=== PATIENT | male | born 1950 | race Caucasian/White ===

== ENCOUNTER 2018-05-20 05:55 | Observation (INO) | payer MEDICARE, OTHER ==
[2018-04-18 18:33] LABS: ADD MAN DIFF? NO
[2018-04-18 18:40] LABS: BASOPHILS % 0.2 % (0.0-2.0); EOSINOPHILS # 0.1 10^3/ul (0.0-0.5); EOSINOPHILS % 1.4 % (0.0-7.0); HEMATOCRIT 43.8 % (42.0-52.0); HEMOGLOBIN 14.9 g/dl (14.0-18.0); LYMPHOCYTES # 1.6 10^3/ul (0.8-2.9); MEAN CORPUSCULAR HEMOGLOBIN 30.3 pg (29.0-33.0); MEAN PLATELET VOLUME 9.6 fl (7.4-10.4); MONOCYTE # 0.4 10^3/ul (0.3-0.9); MONOCYTES % 7.5 % (0.0-11.0); NEUTROPHIL # 3.1 10^3/ul (1.6-7.5); NEUTROPHILS % 59.7 % (39.0-77.0); PLATELET COUNT 195 10^3/UL (140-415); RED BLOOD COUNT 4.92 10^6/ul (4.70-6.10); RED CELL DISTRIBUTION WIDTH 13.2 % (11.5-14.5)
[2018-04-18 18:40] LABS: WHITE BLOOD COUNT 5.1 10^3/ul (4.8-10.8)
[2018-04-18 18:44] LABS: ADD UMIC NO; UR ASCORBIC ACID NEGATIVE (NEGATIVE); UR BILIRUBIN (Dip) NEGATIVE (NEGATIVE); UR BLOOD (Dip) NEGATIVE (NEGATIVE); UR CLARITY CLEAR (CLEAR); UR COLOR YELLOW (YELLOW); UR GLUCOSE (Dip) NEGATIVE (NEGATIVE); UR KETONES (Dip) NEGATIVE (NEGATIVE); UR LEUKOCYTE ESTERASE (Dip) NEGATIVE Leu/ul (NEGATIVE); UR NITRITE (Dip) NEGATIVE (NEGATIVE); UR SPECIFIC GRAVITY (Dip) 1.018 (1.003-1.030); UR TOTAL PROTEIN (Dip) NEGATIVE (NEGATIVE); UR UROBILINOGEN (Dip) NEGATIVE (NEGATIVE)
[2018-04-18 18:57] LABS: ALANINE AMINOTRANSFERASE 25 IU/L (13-69); ALBUMIN 4.2 g/dl (3.3-4.9); ALBUMIN/GLOBULIN RATIO 1.44; ALKALINE PHOSPHATASE 75 IU/L (42-121); ANION GAP 6 (5-13); ASPARTATE AMINO TRANSFERASE 29 IU/L (15-46); BILIRUBIN,INDIRECT 0.1 mg/dl (0-1.1); BILIRUBIN,TOTAL 0.1 mg/dl (0.2-1.3); BLOOD UREA NITROGEN 16 mg/dl (7-20); CALCIUM 9.8 mg/dl (8.4-10.2); CARBON DIOXIDE 26 mmol/L (21-31); CHLORIDE 110 mmol/L (97-110); CREATININE 0.92 mg/dl (0.61-1.24); Estimated GFR > 60 mL/min (>60); GLUCOSE 127 mg/dl (70-220); POTASSIUM 4.1 mmol/L (3.5-5.1); SODIUM 142 mmol/L (135-144); TOTAL PROTEIN 7.1 g/dl (6.1-8.1)
[2018-05-20 06:48] LABS: ADD MAN DIFF? NO
[2018-05-20 06:58] LABS: BASOPHILS % 0.4 % (0.0-2.0); EOSINOPHILS # 0.1 10^3/ul (0.0-0.5); EOSINOPHILS % 2.5 % (0.0-7.0); HEMATOCRIT 43.9 % (42.0-52.0); LYMPHOCYTES # 1.7 10^3/ul (0.8-2.9); LYMPHOCYTES % 30.2 % (15.0-51.0); MEAN CORPUSCULAR HEMOGLOBIN 30.1 pg (29.0-33.0); MEAN CORPUSCULAR HGB CONC 34.2 g/dl (32.0-37.0); MEAN CORPUSCULAR VOLUME 88.2 fl (82.0-101.0); MEAN PLATELET VOLUME 9.8 fl (7.4-10.4); MONOCYTE # 0.5 10^3/ul (0.3-0.9); MONOCYTES % 8.6 % (0.0-11.0); NEUTROPHIL # 3.2 10^3/ul (1.6-7.5); NEUTROPHILS % 57.9 % (39.0-77.0); PLATELET COUNT 192 10^3/UL (140-415); RED BLOOD COUNT 4.98 10^6/ul (4.70-6.10); RED CELL DISTRIBUTION WIDTH 12.9 % (11.5-14.5)
[2018-05-20 06:58] LABS: WHITE BLOOD COUNT 5.6 10^3/ul (4.8-10.8)
[2018-05-20] MEDS ORDERED: EPHEDrine SULFATE 50 MG/5 ML SYG IV (07:00)
[2018-05-20] MEDS ORDERED: DIPHENHYDRAMINE 50 MG INJ IV (07:00)
[2018-05-20] MEDS ORDERED: TRIMETHOBENZAMIDE 100 MG/ML VIAL IM (07:00)
[2018-05-20] MEDS ORDERED: OXYCODONE/ACETAMINOPHEN (5/325) TAB PO ×2 (07:00)
[2018-05-20] MEDS ORDERED: IPRATROPIUM (NEB) 0.5 MG/2.5 ML AMP HHN (07:00)
[2018-05-20] MEDS ORDERED: HYDROmorphONE 1 MG/5 ML IV SYRINGE IV ×3 (07:00)
[2018-05-20] MEDS ORDERED: MIDAZOLAM 1 MG/ML 2 ML INJ IV (07:00)
[2018-05-20] MEDS ORDERED: LABETALOL HCL 20MG INJ IV (07:00)
[2018-05-20] MEDS ORDERED: ALBUTEROL 0.083% (NEB) 2.5 MG/3 ML AMP HHN (07:00)
[2018-05-20] MEDS ORDERED: MEPERIDINE 25 MG INJ IV (07:00)
[2018-05-20] MEDS ORDERED: hydrALAzine 20 MG INJ IV (07:00)
[2018-05-20] MEDS ORDERED: FENTAnyl 50 MCG/ML VIAL IV ×3 (07:00)
[2018-05-20 07:08] LABS: ADD UMIC NO; UR ASCORBIC ACID NEGATIVE (NEGATIVE); UR BILIRUBIN (Dip) NEGATIVE (NEGATIVE); UR BLOOD (Dip) NEGATIVE (NEGATIVE); UR CLARITY CLEAR (CLEAR); UR COLOR STRAW (YELLOW); UR GLUCOSE (Dip) NEGATIVE (NEGATIVE); UR KETONES (Dip) NEGATIVE (NEGATIVE); UR LEUKOCYTE ESTERASE (Dip) NEGATIVE Leu/ul (NEGATIVE); UR NITRITE (Dip) NEGATIVE (NEGATIVE); UR TOTAL PROTEIN (Dip) NEGATIVE (NEGATIVE); UR UROBILINOGEN (Dip) NEGATIVE (NEGATIVE)
[2018-05-20] MEDS ORDERED: CEFAZOLIN 1 GM INJ (07:09)
[2018-05-20] MEDS ORDERED: ROCURONIUM 50 MG INJ (07:09)
[2018-05-20] MEDS ORDERED: MIDAZOLAM 1 MG/ML 2 ML INJ (07:09)
[2018-05-20] MEDS ORDERED: NEOSTIGMINE 3 MG/3 ML SYRINGE (07:09)
[2018-05-20] MEDS ORDERED: PROPOFOL 20 ML (07:09)
[2018-05-20] MEDS ORDERED: FENTAnyl 50 MCG/ML VIAL ×2 (07:09→08:14)
[2018-05-20] MEDS ORDERED: GLYCOPYRROLATE 0.4 MG INJ (07:09)
[2018-05-20] MEDS ORDERED: DEXAMETHASONE 4 MG/ML 5 ML INJ (07:10)
[2018-05-20] MEDS ORDERED: ONDANSETRON 4 MG INJ (07:10)
[2018-05-20] MEDS ORDERED: ROPIVACAINE 0.5 % 30 ML VIAL (07:11)
[2018-05-20 07:12] LABS: ALANINE AMINOTRANSFERASE 34 IU/L (13-69); ALBUMIN 4.3 g/dl (3.3-4.9); ALBUMIN/GLOBULIN RATIO 1.43; ALKALINE PHOSPHATASE 75 IU/L (42-121); ANION GAP 9 (5-13); ASPARTATE AMINO TRANSFERASE 28 IU/L (15-46); BILIRUBIN,INDIRECT 0.2 mg/dl (0-1.1); BILIRUBIN,TOTAL 0.2 mg/dl (0.2-1.3); BLOOD UREA NITROGEN 14 mg/dl (7-20); CALCIUM 9.3 mg/dl (8.4-10.2); CARBON DIOXIDE 23 mmol/L (21-31); CHLORIDE 110 mmol/L (97-110); Estimated GFR > 60 mL/min (>60); GLUCOSE 113 mg/dl (70-220); SODIUM 142 mmol/L (135-144); TOTAL PROTEIN 7.3 g/dl (6.1-8.1)
[2018-05-20] MEDS: GELATIN SIZE 100 SPONGE (08:26)
[2018-05-20] MEDS: THROMBIN 5000 UNIT VIAL (08:26)
[2018-05-20] MEDS: POLYMYXIN/BACITRACIN 1L IRRIG (08:27)
[2018-05-20] MEDS: POVIDONE IODINE 10% 28.4 GM OINT (08:27)
[2018-05-20] MEDS: ROPIVACAINE 0.5 % 30 ML VIAL (08:27)
[2018-05-20] MEDS ORDERED: SUGAMMADEX SODIUM 200 MG/2 ML VIAL IV (11:34)
[2018-05-20] MEDS ORDERED: CEFAZOLIN 1 GM/50 ML (PMX) 50 ML IVPB (13:00)
[2018-05-20] MEDS ORDERED: BISACODYL 10 MG SUPP PR (13:00)
[2018-05-20] MEDS ORDERED: morphine 10 MG INJ IV (13:00)
[2018-05-20] MEDS ORDERED: DIPHENHYDRAMINE 25 MG CAP PO (13:00)
[2018-05-20] MEDS ORDERED: ONDANSETRON 4 MG INJ IV (13:00)
[2018-05-20] MEDS: ONDANSETRON 4 MG INJ IV (13:02)
[2018-05-20] MEDS: HYDROmorphONE 0.2 MG/ML PCA IV (13:03)
[2018-05-20] MEDS: CEFAZOLIN 1 GM/50 ML (PMX) 50 ML IVPB (17:06)
[2018-05-20] MEDS: SOD CHLORIDE 0.9% 1,000 ML IV (17:08)
[2018-05-20] MEDS: SENNA/DOCUSATE NA (8.6MG/50MG) TAB PO (21:23)
[2018-05-21] MEDS: CEFAZOLIN 1 GM/50 ML (PMX) 50 ML IVPB ×4 (00:15→23:41)
[2018-05-21] MEDS: HYDROmorphONE 0.2 MG/ML PCA IV (01:11)
[2018-05-21] MEDS: SOD CHLORIDE 0.9% 1,000 ML IV ×3 (03:48→18:39)
[2018-05-21] MEDS: SENNA/DOCUSATE NA (8.6MG/50MG) TAB PO ×2 (08:45→20:47)
[2018-05-21] MEDS: OXYCODONE/ACETAMINOPHEN (5/325) TAB PO ×4 (10:19→22:20)
[2018-05-21] MEDS: RIVAROXABAN 10 MG TABLET PO (17:51)
[2018-05-22] MEDS: OXYCODONE/ACETAMINOPHEN (5/325) TAB PO ×3 (02:15→11:12)
[2018-05-22] MEDS: SOD CHLORIDE 0.9% 1,000 ML IV (03:05)
[2018-05-22] MEDS: CEFAZOLIN 1 GM/50 ML (PMX) 50 ML IVPB (09:06)
[2018-05-22] MEDS: SENNA/DOCUSATE NA (8.6MG/50MG) TAB PO (09:06)
[2018-05-22] MEDS ORDERED: MAGNESIUM HYDROXIDE 30ML CUP PO (21:00)
== END 2018-05-22 11:50 | disposition home or self-care (01) ==
LOC: SDS 05:55 → REC 12:39 → MS1 14:25
DX: M19.072 Primary osteoarthritis, left ankle and foot (principal); M24.672 Ankylosis, left ankle
CPT/HCPCS: 20900; 71045; 73630-LT; 80053; 81003; 82306; 85025; 87086; 97116; 97161; 97530; 99217